=== PATIENT | female | born 1935 | race Caucasian/White ===

== ENCOUNTER → 2016-06-22 | Outpatient (CLI) | payer MEDICARE ==
[~2016-06-22] MED LIST: ISOVUE-300 61% 50ML VIAL (Q9967) As Ordered ONE; SODIUM BICARBONATE 8.4% INJ 50MEQ 50 ML VIAL As Ordered ONE
--- NOTE | 2016-06-22 16:36 | REPKIM ---
PROCEDURE: Inferior venacavagram and placement of an IVC filter MEDICAL DIAGNOSIS/CLINICAL HISTORY: Pulmonary embolism, s/p recent polyp removal and gastrointestinal bleeding. Patient is at high risk for subsequent pulmonary embolism and cannot be reliably anticoagulated at this time. INTERVENTIONALIST: Shirin Vanegas MD MEDICATIONS: Local Lidocaine 2% CONTRAST: 23 mL, Isovue 300 EBL: 3 mL FLUORO TIME: 1.5 minute DEVICE USED: Cook Celect IVC filter Lot# [id number] Procedure: The risks, benefits, and alternatives of the use of a vena cava filter were discussed with the patient and informed written consent was obtained. The patient was brought to the interventional radiology suite where a timeout procedure was performed. The right neck was prepped and draped in a sterile fashion. After local anesthetic was established, the right internal jugular vein was punctured using a micropuncture needle under ultrasound guidance. A 7-Tajik catheter was inserted into the lower IVC vein. Contrast was injected, serial DSA images of the abdomen were obtained and the transverse diameter of the IVC was calculated. The distance from the lowest renal vein to the common iliac vein confluence was ascertained. The filter introducer system was then positioned in the infrarenal IVC over the guidewire. Under fluoroscopic guidance, the filter was inserted into the introducer, carefully positioned and successfully deployed. The introducer was removed and complete hemostasis was achieved with manual pressure. The patient tolerated the procedure well without immediate complication. This procedure was performed using ultrasound and fluoroscopy. FINDINGS: 1) The right IJ vein is patent and compressible. 2) The IVC is normal in course and caliber. 3) Successful placement of IVC filter in a satisfactory position and configuration. IMPRESSION: Successful IVC filter placement as discussed above. The Celect IVC filter can stay permanently or can be retrievable. Once the need for caval filter ration has passed, please contact interventional radiology, for filter retrieval if clinically desired. Dr. Vanegas was present for this procedure as documented in the progress notes. cc: Hugh Alejandro MD [facility]ALTHMy[facility]
== END | disposition home or self-care (01) ==
LOC: M IRPRO 14:10
PROVIDERS: ATTEND Internal Medicine Cardiovascular Disease
DX: I26.99 Other pulmonary embolism without acute cor pulmonale (principal)
CPT/HCPCS: 37191; 74340; C1769; C1880; C1894; Q9967

== ENCOUNTER → 2016-12-06 | Outpatient (CLI) | payer MEDICARE ==
--- NOTE | 2016-12-07 13:57 | REP ---
NUCLEAR THYROID UPTAKE AND SCAN: Following the oral administration of 332 mCi of iodine 123 as sodium iodine, thyroid uptake is measured. The 24 hour uptake is 2% which is markedly below the normal range of 25-35%. Thyroid scan shows minimal uptake in the region of the thyroid. IMPRESSION: Extremely low thyroid uptake at 2% at 24 hours. Minimal uptake is seen on the acquired images. Signed by Jovanni Kolb MD 12/07/2016 05:05 P
== END ==
LOC: M RAD 13:48
PROVIDERS: ATTEND Internal Medicine Cardiovascular Disease
DX: E05.90 Thyrotoxicosis, unspecified without thyrotoxic crisis or storm (principal)
CPT/HCPCS: 78012; A9516